=== PATIENT | female | born 1965 | race Caucasian/White ===

== ENCOUNTER 2017-10-18 08:28 | Inpatient (IN) | END 2017-10-19 18:20 | disposition home or self-care (01) | DRG 626 ==

== ENCOUNTER 2017-10-24 14:10 | Outpatient (CLI) | END 2017-10-24 15:54 | disposition home or self-care (01) ==

== ENCOUNTER 2017-11-15 14:22 | Outpatient (CLI) | END 2017-11-15 16:42 | disposition home or self-care (01) ==